=== PATIENT | male | born 1940 | race Caucasian/White ===

== ENCOUNTER → 2021-12-28 13:21 | Outpatient (CLI) | payer MEDICARE, SELFPAY ==
--- NOTE | 2021-12-28 | DI.MRI.S_ITS ---
PROCEDURE: MR BRAIN (IAC) WWO CON INDICATIONS: Dizziness and giddiness/RULE OUT MASS TECHNIQUE: Noncontrast sagittal T1 spin echo, axial FLAIR, axial gradient echo, axial diffusion and ADC through the brain. Axial thin-slice 3D CISS, coronal TruFISP, axial T1 spin echo with fat saturation through the internal auditory canals. After the administration of contrast, thin slice axial and coronal T1 spin echo with fat saturation through the internal auditory canals, and axial T1 spin echo with fat saturation through the brain. COMPARISON: None. FINDINGS: Image quality: Excellent. Cerebellopontine angles: No cerebellopontine angle masses. Inner ear structures appear normally formed. No suspicious enhancement in the internal auditory canal or along the course of the 7th cranial nerve. CSF spaces: Ventricles are normal in size and shape. No extra-axial fluid collections. Basal cisterns are patent. Brain: Mild atrophy and white matter chronic ischemic change noted. No intracranial bleeds or mass effects. Pagan-white matter interface is intact. No abnormal intracranial enhancement. Diffusion weighted images demonstrate no acute ischemic insults. Brainstem appears normal. Normal intravascular flow voids are present. Skull and face: Calvarial marrow signal is normal. Orbits appear normal. Sinuses: Sinuses and mastoids are clear. IMPRESSION: 1. Mild atrophy and white matter chronic ischemic change. 2. Normal MRI of the internal auditory canals without evidence of mass lesion Approved by: Keanu Phelps M.D. on 12/28/2021 at 17:16
== END ==
PROVIDERS: PCP Psychiatry & Neurology Neurology; Referring Provider Psychiatry & Neurology Neurology; Visit Provider Psychiatry & Neurology Neurology
DX: R42 Dizziness and giddiness (principal)
CPT/HCPCS: 70553; A9579

== ENCOUNTER 2022-08-23 09:00 | Outpatient (RCR) | payer MEDICARE, SELFPAY ==
--- NOTE | 2022-07-12 15:58 | PT.OIE ---
Current Diagnoses Sensorineural hearing loss, bilateral (07/12/22) Tinnitus, bilateral (07/12/22) Other abnormalities of gait and mobility (07/12/22) Dizziness and giddiness (07/12/22) Visit Care Team Role Provider Type Derrick Cristobal Family Provider Non-Staff Primary Care Provider Specialty: Family Practice Address: [address] , [place], [address] Email: Kulwant Frost MD Attending Provider Physician Referring Provider Specialty: Ear, Nose, Throat Address: [address] [place] [address], [id number] Email: [email or web address] Physical Therapy Initial Evaluation PT-OP-A Visit Information Start: 07/12/22 11:20 Freq: Status: Active Protocol: Document 07/12/22 11:23 AMB (Rec: 07/12/22 11:33 AMB [id number]) Out-Patient Physical Therapy Visit Information Visit Information Visit Type Initial Evaluation Visit Start Time 11:15 Visit Stop Time 12:00 Total Visit Minutes 45 Visit Number 1 PT-OP-B Current Condition Start: 07/12/22 11:20 Freq: Status: Active Protocol: Document 07/12/22 11:23 AMB (Rec: 07/12/22 11:33 AMB [id number]) Current Condition History of Current Condition Onset Date Chronic Current Complaints Dizziness History of Current Condition Waving sx when up and moving. Denies falls. Has had previous vestibular therapy which focused on Bebo and did not help. Did have VNG which showed L sided weakness. Describes 0/10 dizziness when at rest, 3-4/10 when walking and turning. Treatment Goals Patient/Caregiver Goals Reduce dizziness Personal Factors Other Personal Factors That May Effect TKA wiht multiple MUAs Therapy/Recovery PT-OP-C Subjective Start: 07/12/22 11:20 Freq: Status: Active Protocol: Document 07/12/22 11:15 AMB (Rec: 07/12/22 13:01 AMB [id number]) Patient Questionnaires Dizziness Handicap Inventory DHI Score 36 DHI Functional Impairment 20 to 39% Impaired (Score 20- 39) PT-OP-E Functional Tests Start: 07/12/22 11:20 Freq: Status: Active Protocol: Document 07/12/22 11:15 AMB (Rec: 07/19/22 11:17 AMB [id number]) Functional Tests Dynamic Gait Index (DGI) Score 18 DGI Impairment Rating 20 to <40% Impaired (Score 15- 19) PT-OP-O Vestibular Start: 07/12/22 11:20 Freq: Status: Active Protocol: Document 07/12/22 11:15 AMB (Rec: 07/19/22 11:17 AMB [id number]) Vestibular Assessment Visual Testing Smooth Pursuits Horizontal WFL Smooth Pursuits Vertical WFL Saccades Horizontal WFL Saccades Vertical WFL Thrust Head Positive Left DVA (Line Degradation) 5 Vestibulo-Ocular Reflex (VOR1) Positive PT-OP-Q Treatments Start: 07/12/22 11:20 Freq: Status: Active Protocol: Document 07/12/22 11:15 AMB (Rec: 07/19/22 11:17 AMB [id number]) Neuro Re-Education Treatment Vestibular Rehabilitation VOR Retraining Background smooth Other Activities walking with head turns Details horizontal, vertical Reps/Duration 20'x2 PT-OP-T Assessment and Plan Start: 07/12/22 11:20 Freq: Status: Active Protocol: Document 07/12/22 11:15 AMB (Rec: 07/19/22 15:57 AMB [id number]) Physical Therapy Assessment Evaluation Complexity Number of Personal Factors/Comorbidities 1-2 Number of Body Systems Impaired 1-2 Clinical Presentation at Evaluation Stable Impairments Impairments Functional Activities, Vestibular Goals Two Impairment gait Short Term Goal (STG) Syd will ambulate with horizontal head turns without veering. STG Duration 6 weeks Final Assembler Boat Goal (LTG) Syd will turn quickly without a feeling of waving LTG Duration 12 weeks One Impairment Vestibular function Short Term Goal (STG) Syd will discribe dizziness as 2/10 or less with movement . Final Assembler Boat Goal (LTG) Syd will be independent and consistent with a HEP to improve his peripheral and central vestibular function. LTG Duration 12 weeks Assessment Summary Assessment Syd attends physical therapy with longstanding wavy sx when up and moving about. Specifically denies spinning or sx in general with rolling or positional changes . Did show signs of L sided vestibular hypofunction and 5 line difference with DVA. Symptoms with walking with head turns, pivot turn with DGI. Educated in role of vestibular therapy for chronic sx. Pt does live in [facility] so needs to take ferry to come to medical appts and will be traveling out of state mid/late August. Will focus on exercises to help him manage his sx that he can progress at home due to distance from clinic and travel schedule. Physical Therapy Plan Frequency and Duration Frequency of Treatment 2x/Week Duration of treatment (weeks) 12 Plan of Care Start Date 07/12/22 Plan of Care End Date 10/04/22 Therapeutic Interventions Therapeutic Interventions Balance Training,Home Exercise Program,Manual Therapy, Neuromuscular Re-education, Therapeutic Activities, Therapeutic Exercises, Vestibular Rehabilitation Next Visit Focus/Plan Next Note Type Treatment Note Next Visit Plan review VOR exercises
--- NOTE | 2022-07-12 15:59 | PT.OPPOC ---
Physical, Occupational & Speech Therapy At [facility] Current Diagnoses Sensorineural hearing loss, bilateral (07/12/22) Tinnitus, bilateral (07/12/22) Other abnormalities of gait and mobility (07/12/22) Dizziness and giddiness (07/12/22) Visit Care Team Role Provider Type Derrick Cristobal Family Provider Non-Staff Primary Care Provider Specialty: Family Practice Address: [address] [facility], [place], [address] Email: Kulwant Frost MD Attending Provider Physician Referring Provider Specialty: Ear, Nose, Throat Address: [address] [place] [address], [address] Email: [email or web address] Plan Of Care PT-OP-T Assessment and Plan Start: 07/12/22 11:20 Freq: Status: Active Protocol: Document 07/12/22 11:15 AMB (Rec: 07/19/22 15:57 AMB [id number]) Physical Therapy Assessment Evaluation Complexity Number of Personal Factors/Comorbidities 1-2 Number of Body Systems Impaired 1-2 Clinical Presentation at Evaluation Stable Impairments Impairments Functional Activities, Vestibular Goals Two Impairment gait Short Term Goal (STG) Syd will ambulate with horizontal head turns without veering. STG Duration 6 weeks [facility] Goal (LTG) Syd will turn quickly without a feeling of waving LTG Duration 12 weeks One Impairment Vestibular function Short Term Goal (STG) Syd will discribe dizziness as 2/10 or less with movement . [facility] Goal (LTG) Syd will be independent and consistent with a HEP to improve his peripheral and central vestibular function. LTG Duration 12 weeks Assessment Summary Assessment Syd attends physical therapy with longstanding wavy sx when up and moving about. Specifically denies spinning or sx in general with rolling or positional changes . Did show signs of L sided vestibular hypofunction and 5 line difference with DVA. Symptoms with walking with head turns, pivot turn with DGI. Educated in role of vestibular therapy for chronic sx. Pt does live in [facility] so needs to take ferry to come to medical appts and will be traveling out of state mid/late August. Will focus on exercises to help him manage his sx that he can progress at home due to distance from clinic and travel schedule. Physical Therapy Plan Frequency and Duration Frequency of Treatment 2x/Week Duration of treatment (weeks) 12 Plan of Care Start Date 07/12/22 Plan of Care End Date 10/04/22 Therapeutic Interventions Therapeutic Interventions Balance Training,Home Exercise Program,Manual Therapy, Neuromuscular Re-education, Therapeutic Activities, Therapeutic Exercises, Vestibular Rehabilitation Next Visit Focus/Plan Next Note Type Treatment Note Next Visit Plan review VOR exercises Plan of Care Dates Plan of Care Start Date 07/12/22 Plan of Care End Date 10/04/22 Electronically Signed by: Sandy Owusu, PT 07/19/22 6939 If you are in agreement with this Plan of Care, please return a signed and dated copy. I have reviewed this Plan of Care and certify that the skilled therapy services above are required to meet the patient?s needs. Physician Signature Date Printed Name and Credentials Clinical Instructor Signature Printed Name and Credentials
--- NOTE | 2022-07-22 13:21 | PT.OTN ---
Current Diagnoses Sensorineural hearing loss, bilateral (07/22/22) Tinnitus, bilateral (07/22/22) Other abnormalities of gait and mobility (07/22/22) Dizziness and giddiness (07/22/22) Physical Therapy Treatment Note PT-OP-A Visit Information Start: 07/12/22 11:20 Freq: Status: Active Protocol: Document 07/22/22 10:33 AMB (Rec: 07/22/22 11:05 AMB [id number]) Out-Patient Physical Therapy Visit Information Visit Information Visit Type Treatment Note Visit Start Time 10:30 Visit Stop Time 11:15 Total Visit Minutes 45 Visit Number 2 PT-OP-B Current Condition Start: 07/12/22 11:20 Freq: Status: Active Protocol: Document 07/12/22 11:23 AMB (Rec: 07/12/22 11:33 AMB [id number]) Current Condition History of Current Condition Onset Date Chronic Current Complaints Dizziness History of Current Condition Waving sx when up and moving. Denies falls. Has had previous vestibular therapy which focused on Bebo and did not help. Did have VNG which showed L sided weakness. Describes 0/10 dizziness when at rest, 3-4/10 when walking and turning. Treatment Goals Patient/Caregiver Goals Reduce dizziness Personal Factors Other Personal Factors That May Effect TKA wiht multiple MUAs Therapy/Recovery PT-OP-C Subjective Start: 07/12/22 11:20 Freq: Status: Active Protocol: Document 07/22/22 10:33 AMB (Rec: 07/22/22 11:05 AMB [id number]) OP-PT Subjective Patient Comments Patient Comments When walking feels like it's a little better with the vision . PT-OP-E Functional Tests Start: 07/12/22 11:20 Freq: Status: Active Protocol: Document 07/12/22 11:15 AMB (Rec: 07/19/22 11:17 AMB [id number]) Functional Tests Dynamic Gait Index (DGI) Score 18 DGI Impairment Rating 20 to <40% Impaired (Score 15- 19) PT-OP-O Vestibular Start: 07/12/22 11:20 Freq: Status: Active Protocol: Document 07/12/22 11:15 AMB (Rec: 07/19/22 11:17 AMB [id number]) Vestibular Assessment Visual Testing Smooth Pursuits Horizontal WFL Smooth Pursuits Vertical WFL Saccades Horizontal WFL Saccades Vertical WFL Thrust Head Positive Left DVA (Line Degradation) 5 Vestibulo-Ocular Reflex (VOR1) Positive PT-OP-Q Treatments Start: 07/12/22 11:20 Freq: Status: Active Protocol: Document 07/22/22 10:30 AMB (Rec: 07/23/22 13:20 AMB [id number]) Gym Equipment Shuttle Balance BLUE Comments NBOS HT EO RED Comments challenging Neuro Re-Education Treatment Vestibular Rehabilitation VOR Retraining Background varied (picture) Comments with ambulation Other Activities 3 steps and bow Comments 1 minute with slow head turn right and left walking with head turns Details horizontal, vertical, added diagonal Reps/Duration 20'x2 PT-OP-T Assessment and Plan Start: 07/12/22 11:20 Freq: Status: Active Protocol: Document 07/22/22 10:33 AMB (Rec: 07/22/22 11:05 AMB [id number]) Physical Therapy Assessment Goals Two Impairment gait Short Term Goal (STG) Syd will ambulate with horizontal head turns without veering. STG Duration 6 weeks Custodial Goal (LTG) Syd will turn quickly without a feeling of waving LTG Duration 12 weeks One Impairment Vestibular function Short Term Goal (STG) Syd will discribe dizziness as 2/10 or less with movement . Satellite Tv Technician Installer Goal (LTG) Syd will be independent and consistent with a HEP to improve his peripheral and central vestibular function. LTG Duration 12 weeks Assessment Summary Assessment Syd tolerated the increased challenge of his HEP well. Diagonal head turns were challenging. Is progressing well, but does take a long ferry to PT and then will be out of town, so visits are limited. Physical Therapy Plan Frequency and Duration Frequency of Treatment 2x/Week Duration of treatment (weeks) 12 Plan of Care Start Date 07/12/22 Plan of Care End Date 10/04/22 Therapeutic Interventions Therapeutic Interventions Balance Training,Home Exercise Program,Manual Therapy, Neuromuscular Re-education, Therapeutic Activities, Therapeutic Exercises, Vestibular Rehabilitation
--- NOTE | 2022-08-10 11:01 | PT.OTN ---
Current Diagnoses Sensorineural hearing loss, bilateral (08/10/22) Tinnitus, bilateral (08/10/22) Other abnormalities of gait and mobility (08/10/22) Dizziness and giddiness (08/10/22) Physical Therapy Treatment Note PT-OP-A Visit Information Start: 07/12/22 11:20 Freq: Status: Active Protocol: Document 08/10/22 09:47 AMB (Rec: 08/10/22 11:00 AMB [id number]) Out-Patient Physical Therapy Visit Information Visit Information Visit Type Treatment Note Visit Start Time 09:45 Visit Stop Time 10:30 Total Visit Minutes 45 Visit Number 3 PT-OP-B Current Condition Start: 07/12/22 11:20 Freq: Status: Active Protocol: Document 07/12/22 11:23 AMB (Rec: 07/12/22 11:33 AMB [id number]) Current Condition History of Current Condition Onset Date Chronic Current Complaints Dizziness History of Current Condition Waving sx when up and moving. Denies falls. Has had previous vestibular therapy which focused on Bebo and did not help. Did have VNG which showed L sided weakness. Describes 0/10 dizziness when at rest, 3-4/10 when walking and turning. 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 Hasn't noticed a huge change with exercises yet. PT-OP-E Functional Tests Start: 07/12/22 11:20 Freq: Status: Active Protocol: Document 07/12/22 11:15 AMB (Rec: 07/19/22 11:17 AMB [id number]) Functional Tests Dynamic Gait Index (DGI) Score 18 DGI Impairment Rating 20 to <40% Impaired (Score 15- 19) PT-OP-O Vestibular Start: 07/12/22 11:20 Freq: Status: Active Protocol: Document 07/12/22 11:15 AMB (Rec: 07/19/22 11:17 AMB [id number]) Vestibular Assessment Visual Testing Smooth Pursuits Horizontal WFL Smooth Pursuits Vertical WFL Saccades Horizontal WFL Saccades Vertical WFL Thrust Head Positive Left DVA (Line Degradation) 5 Vestibulo-Ocular Reflex (VOR1) Positive PT-OP-Q Treatments Start: 07/12/22 11:20 Freq: Status: Active Protocol: Document 08/10/22 09:47 AMB (Rec: 08/10/22 11:00 AMB [id number]) Gym Equipment Shuttle Balance BLUE Details 10 min Comments NBOS HT EO a/p and m/l Neuro Re-Education Treatment Vestibular Rehabilitation X2 Viewing Comments 30x2 VOR Retraining Speed 80 bpm Comments 1 min x 5 NBOS Other Activities 3 steps and bow Comments 1 minute with slow head turn right and left walking with head turns Details horizontal, vertical, added diagonal Reps/Duration 20'x2 PT-OP-T Assessment and Plan Start: 07/12/22 11:20 Freq: Status: Active Protocol: Document 08/10/22 09:47 AMB (Rec: 08/10/22 11:00 AMB [id number]) Physical Therapy Assessment Goals Two Impairment gait Short Term Goal (STG) Syd will ambulate with horizontal head turns without veering. STG Duration 6 weeks Client Service Consultant Goal (LTG) Syd will turn quickly without a feeling of waving LTG Duration 12 weeks One Impairment Vestibular function Short Term Goal (STG) Syd will discribe dizziness as 2/10 or less with movement . Penitentiary Goal (LTG) Syd will be independent and consistent with a HEP to improve his peripheral and central vestibular function. LTG Duration 12 weeks Assessment Summary Assessment Syd tolderated increasing speed of VOR well. Encouraged to continue to give it time to progress. Physical Therapy Plan Frequency and Duration Frequency of Treatment 2x/Week Duration of treatment (weeks) 12 Plan of Care Start Date 07/12/22 Plan of Care End Date 10/04/22 Therapeutic Interventions Therapeutic Interventions Balance Training,Home Exercise Program,Manual Therapy, Neuromuscular Re-education, Therapeutic Activities, Therapeutic Exercises, Vestibular Rehabilitation Next Visit Focus/Plan Next Note Type Treatment Note Next Visit Plan review VOR exercises
--- NOTE | 2022-08-23 09:56 | PT.OTN ---
Current Diagnoses Sensorineural hearing loss, bilateral (08/23/22) Tinnitus, bilateral (08/23/22) Other abnormalities of gait and mobility (08/23/22) Dizziness and giddiness (08/23/22) Physical Therapy Treatment Note PT-OP-A Visit Information Start: 07/12/22 11:20 Freq: Status: Active Protocol: Document 08/23/22 09:01 AMB (Rec: 08/23/22 09:56 AMB [id number]) Out-Patient Physical Therapy Visit Information Visit Information Visit Type Treatment Note Visit Start Time 09:00 Visit Stop Time 09:45 Total Visit Minutes 45 Visit Number 4 PT-OP-B Current Condition Start: 07/12/22 11:20 Freq: Status: Active Protocol: Document 07/12/22 11:23 AMB (Rec: 07/12/22 11:33 AMB [id number]) Current Condition History of Current Condition Onset Date Chronic Current Complaints Dizziness History of Current Condition Waving sx when up and moving. Denies falls. Has had previous vestibular therapy which focused on Bebo and did not help. Did have VNG which showed L sided weakness. Describes 0/10 dizziness when at rest, 3-4/10 when walking and turning. Treatment Goals Patient/Caregiver Goals Reduce dizziness Personal Factors Other Personal Factors That May Effect TKA wiht multiple MUAs Therapy/Recovery PT-OP-C Subjective Start: 07/12/22 11:20 Freq: Status: Active Protocol: Document 08/23/22 09:01 AMB (Rec: 08/23/22 09:56 AMB [id number]) OP-PT Subjective Patient Comments Patient Comments Pt continues to feel less steadiness, reports 5/10 unsteadiness with walking whether or not he is doing his head turn exercises. PT-OP-E Functional Tests Start: 07/12/22 11:20 Freq: Status: Active Protocol: Document 07/12/22 11:15 AMB (Rec: 07/19/22 11:17 AMB [id number]) Functional Tests Dynamic Gait Index (DGI) Score 18 DGI Impairment Rating 20 to <40% Impaired (Score 15- 19) PT-OP-O Vestibular Start: 07/12/22 11:20 Freq: Status: Active Protocol: Document 07/12/22 11:15 AMB (Rec: 07/19/22 11:17 AMB [id number]) Vestibular Assessment Visual Testing Smooth Pursuits Horizontal WFL Smooth Pursuits Vertical WFL Saccades Horizontal WFL Saccades Vertical WFL Thrust Head Positive Left DVA (Line Degradation) 5 Vestibulo-Ocular Reflex (VOR1) Positive PT-OP-Q Treatments Start: 07/12/22 11:20 Freq: Status: Active Protocol: Document 08/23/22 09:01 AMB (Rec: 08/23/22 09:56 AMB [id number]) Neuro Re-Education Treatment Vestibular Rehabilitation X2 Viewing Comments 30x2 VOR Retraining Speed 80 bpm Comments 1 min x 5 NBOS Other Activities foam Comments NBOS EO HT; NBOS EC HEP bosu ball Details challenging with eyes open Comments pt needed UE support to prevent LOB PT-OP-T Assessment and Plan Start: 07/12/22 11:20 Freq: Status: Active Protocol: Document 08/23/22 09:01 AMB (Rec: 08/23/22 09:56 AMB [id number]) Physical Therapy Assessment Goals Two Impairment gait Short Term Goal (STG) Syd will ambulate with horizontal head turns without veering. STG Duration 6 weeks Welder Pipe Making Goal (LTG) Syd will turn quickly without a feeling of waving LTG Duration 12 weeks One Impairment Vestibular function Short Term Goal (STG) Syd will discribe dizziness as 2/10 or less with movement . Long-Term Goal (LTG) Syd will be independent and consistent with a HEP to improve his peripheral and central vestibular function. LTG Duration 12 weeks Assessment Summary Assessment A lot of time spent discussing pt's prior treatment and discussed blood pressure meds, hydration, foot sensation, LE strength as a whole part of his overall sx. Pt was challenged by bosu ball balance, does have a bosu ball at home, but encouraged in foam balance for right now as bosu was a bit too challenging . Physical Therapy Plan Frequency and Duration Frequency of Treatment 2x/Week Duration of treatment (weeks) 12 Plan of Care Start Date 07/12/22 Plan of Care End Date 10/04/22 Therapeutic Interventions Therapeutic Interventions Balance Training,Home Exercise Program,Manual Therapy, Neuromuscular Re-education, Therapeutic Activities, Therapeutic Exercises, Vestibular Rehabilitation
--- NOTE | 2022-10-09 10:39 | PT.OPDS ---
Current Diagnoses Sensorineural hearing loss, bilateral (08/23/22) Tinnitus, bilateral (08/23/22) Other abnormalities of gait and mobility (08/23/22) Dizziness and giddiness (08/23/22) Visit Care Team Role Provider Type Derrick Cristobal Family Provider Non-Staff Primary Care Provider Specialty: Family Practice Address: [address], [place], [address] Email: Kulwant Frost MD Attending Provider Physician Referring Provider Specialty: Ear, Nose, Throat Address: [address] [place] [address], [id number] Email: [email or web address] Visit Number Visit Number 4 Discharge Summary PT-OP-B Current Condition Start: 07/12/22 11:20 Freq: Status: Active Protocol: Document 07/12/22 11:23 AMB (Rec: 07/12/22 11:33 AMB [id number]) Current Condition History of Current Condition Onset Date Chronic Current Complaints Dizziness History of Current Condition Waving sx when up and moving. Denies falls. Has had previous vestibular therapy which focused on [place]o and did not help. Did have VNG which showed L sided weakness. Describes 0/10 dizziness when at rest, 3-4/10 when walking and turning. Treatment Goals Patient/Caregiver Goals Reduce dizziness Personal Factors Other Personal Factors That May Effect TKA wiht multiple MUAs Therapy/Recovery PT-OP-C Subjective Start: 07/12/22 11:20 Freq: Status: Active Protocol: Document 08/23/22 09:01 AMB (Rec: 08/23/22 09:56 AMB [id number]) OP-PT Subjective Patient Comments Patient Comments Pt continues to feel less steadiness, reports 5/10 unsteadiness with walking whether or not he is doing his head turn exercises. PT-OP-E Functional Tests Start: 07/12/22 11:20 Freq: Status: Active Protocol: Document 07/12/22 11:15 AMB (Rec: 07/19/22 11:17 AMB [id number]) Functional Tests Dynamic Gait Index (DGI) Score 18 DGI Impairment Rating 20 to <40% Impaired (Score 15- 19) PT-OP-O Vestibular Start: 07/12/22 11:20 Freq: Status: Active Protocol: Document 07/12/22 11:15 AMB (Rec: 07/19/22 11:17 AMB [id number]) Vestibular Assessment Visual Testing Smooth Pursuits Horizontal WFL Smooth Pursuits Vertical WFL Saccades Horizontal WFL Saccades Vertical WFL Thrust Head Positive Left DVA (Line Degradation) 5 Vestibulo-Ocular Reflex (VOR1) Positive PT-OP-T Assessment and Plan Start: 07/12/22 11:20 Freq: Status: Active Protocol: Document 10/09/22 10:38 AMB (Rec: 10/09/22 10:39 AMB [id number]) Physical Therapy Assessment Goals Two Impairment gait Short Term Goal (STG) Syd will ambulate with horizontal head turns without veering. STG Duration 6 weeks Halfway Goal (LTG) Syd will turn quickly without a feeling of waving LTG Duration 12 weeks One Impairment Vestibular function Short Term Goal (STG) Syd will discribe dizziness as 2/10 or less with movement . Software Test Technician Goal (LTG) Syd will be independent and consistent with a HEP to improve his peripheral and central vestibular function. LTG Duration 12 weeks Assessment Summary Assessment Pt had canceled his last scheduled appointment and has not followed up to schedule more. he would need a new referral to return. Overall symptoms did not necessarily improve with PT. sx continue to wax and wane. Physical Therapy Plan Discharge Physical Therapy Discharge Reasons No Longer Attending PT
== END 2022-10-10 11:16 | disposition home or self-care (01) ==
LOC: PHYS 09:00
PROVIDERS: Absent Provider Student in an Organized Health Care Education/Training Program; Family Provider Student in an Organized Health Care Education/Training Program; PCP Student in an Organized Health Care Education/Training Program; Referring Provider Otolaryngology; Visit Provider Otolaryngology
DX: R26.89 Other abnormalities of gait and mobility (principal); H90.3 Sensorineural hearing loss, bilateral; H93.13 Tinnitus, bilateral; R42 Dizziness and giddiness
CPT/HCPCS: 97112; 97161

== ENCOUNTER → 2024-04-18 14:51 | Outpatient (RCR) | payer MEDICARE, SELFPAY ==
--- NOTE | 2023-03-30 14:43 | PT.OIE ---
Current Diagnoses Other disorders of vestibular function, left ear (03/30/23) Sensorineural hearing loss, bilateral (03/30/23) Other abnormalities of gait and mobility (03/30/23) Visit Care Team Role Provider Type Derrick Cristobal Family Provider Non-Staff Primary Care Provider Specialty: Family Practice Address: [address] , [place], [address] Email: Kulwant Frost MD Attending Provider Physician Referring Provider Specialty: Ear, Nose, Throat Address: [address] [place] [address], [id number] Email: [email or web address] Physical Therapy Initial Evaluation PT-OP-A Visit Information Start: 03/30/23 13:59 Freq: Status: Active Protocol: Document 03/30/23 12:45 DCW (Rec: 03/30/23 14:13 DCW [id number]) Out-Patient Physical Therapy Visit Information Visit Information Visit Type Initial Evaluation Visit Start Time 12:45 Visit Stop Time 13:30 Total Visit Minutes 45 Visit Number 1 Number of PULMONARY PHYSICAL THERAPIST Visits 0 Evaluation Information Evaluation Date 03/30/23 PT-OP-B Current Condition Start: 03/30/23 13:59 Freq: Status: Active Protocol: Document 03/30/23 12:45 DCW (Rec: 03/30/23 14:13 DCW [id number]) Current Condition History of Current Condition Onset Date ~13 year history Current Complaints Instability/floating sensation with head turns History of Current Condition Pt is an 83 year old male presenting with a ~13 year history of unsteadiness with head movement while walking. Pt has undergone multiple MRIs , met with ENTs, and has already previously done vestibular rehab, with no answers so far, and feels like worsening symptoms. VNG from two months ago shows 57.1% left unilateral caloric weakness, however also shows incomplete compensation. Pt understandably frustrated with lack of answers and not being able to improve with treatment so far. Notes symptoms never feel like rotational vertigo, more of an imbalance/instability. Prior Treatments and Tests Prior vestibular rehab VNG shows 57.1% left unilateral caloric weakness, 36.34% right directional preponderance MRI IAC (Brain): IMPRESSION: 1. Mild atrophy and white matter chronic ischemic change . 2. Normal MRI of the internal auditory canals without evidence of mass lesion. per Hernan Reyna on 12/28/2021 Treatment Goals Patient/Caregiver Goals Eliminate Vertigo PT-OP-C Subjective Start: 03/30/23 13:59 Freq: Status: Active Protocol: Document 03/30/23 12:45 DCW (Rec: 03/30/23 14:13 DCW [id number]) Patient Questionnaires Dizziness Handicap Inventory DHI Score 24% PT-OP-O Vestibular Start: 03/30/23 13:59 Freq: Status: Active Protocol: Document 03/30/23 12:45 DCW (Rec: 03/30/23 14:13 DCW [id number]) Vestibular Assessment Auditory Tests Stahl Test Within normal limits Rinne Test Negative Air Conduction Results Equal Visual Testing Vasalva Test Negative PT-OP-T Assessment and Plan Start: 03/30/23 13:59 Freq: Status: Active Protocol: Document 03/30/23 12:45 DCW (Rec: 03/30/23 14:42 DCW [id number]) Physical Therapy Assessment Rehab Potential Rehabilitation Potential Poor Evaluation Complexity Number of Personal Factors/Comorbidities 3 or More Number of Body Systems Impaired 4 or More Clinical Presentation at Evaluation Unstable Impairments Impairments Balance,Vestibular Goals One Impairment Pt experiences imbalance when walking with any head movement . Turkey Cleaner Goal (LTG) Pt to report a 50% reduction in symptoms over the course of one entire week LTG Duration 06/28/23 Assessment Summary Assessment Pt presents with a very confusing and complicated history. Pt VNG shows a 57.1% left caloric weakness with continued lack of compensation , which is very unusual 13 year after symptoms began and multiple Vestibular rehab sessions. At this point, testing is clear that pt has a unilateral vestibular loss, however no ideas as to the cause. Pt complaints of rehab not helping and actually feeling like symptoms are slowly increasing fit best with a potential diagnosis of something like an acoustic neuroma, however pt underwent an MRI recently looking specifically for auditory masses, and imaging was entirely unremarkable. Unclear at this time what is causing pt's symptoms and unilateral loss, no diagnosis fits well at this time. Prior vestibular rehabilitation was ineffective, and per, pt, actually may have made him feel worse. Would like for pt to return in the future for further testing if this Therapist is able to come up with other possibilities. Pt does have a difficult trip to the clinic from Monday. Physical Therapy Plan Frequency and Duration Frequency of Treatment Every Other Week Plan of Care Start Date 03/30/23 Plan of Care End Date 06/28/23 Therapeutic Interventions Therapeutic Interventions Balance Training,Coordination Training,Neuromuscular Re- education,Therapeutic Activities,Therapeutic Exercises,Vestibular Rehabilitation Next Visit Focus/Plan Next Note Type Treatment Note Next Visit Plan Further vestibular testing as indicated
--- NOTE | 2023-03-30 14:43 | PT.OPPOC ---
Physical, Occupational & Speech Therapy At [facility] Current Diagnoses Other disorders of vestibular function, left ear (03/30/23) Sensorineural hearing loss, bilateral (03/30/23) Other abnormalities of gait and mobility (03/30/23) Visit Care Team Role Provider Type Derrick Cristobal Family Provider Non-Staff Primary Care Provider Specialty: Family Practice Address: [address] , [place], [address] Email: Kulwant Frost MD Attending Provider Physician Referring Provider Specialty: Ear, Nose, Throat Address: [address] [place] [address], [id number] Email: [email or web address] Plan Of Care PT-OP-T Assessment and Plan Start: 03/30/23 13:59 Freq: Status: Active Protocol: Document 03/30/23 12:45 DCW (Rec: 03/30/23 14:42 DCW [id number]) Physical Therapy Assessment Rehab Potential Rehabilitation Potential Poor Evaluation Complexity Number of Personal Factors/Comorbidities 3 or More Number of Body Systems Impaired 4 or More Clinical Presentation at Evaluation Unstable Impairments Impairments Balance,Vestibular Goals One Impairment Pt experiences imbalance when walking with any head movement . Senior Care Goal (LTG) Pt to report a 50% reduction in symptoms over the course of one entire week LTG Duration 06/28/23 Assessment Summary Assessment Pt presents with a very confusing and complicated history. Pt VNG shows a 57.1% left caloric weakness with continued lack of compensation , which is very unusual 13 year after symptoms began and multiple Vestibular rehab sessions. At this point, testing is clear that pt has a unilateral vestibular loss, however no ideas as to the cause. Pt complaints of rehab not helping and actually feeling like symptoms are slowly increasing fit best with a potential diagnosis of something like an acoustic neuroma, however pt underwent an MRI recently looking specifically for auditory masses, and imaging was entirely unremarkable. Unclear at this time what is causing pt's symptoms and unilateral loss, no diagnosis fits well at this time. Prior vestibular rehabilitation was ineffective, and per, pt, actually may have made him feel worse. Would like for pt to return in the future for further testing if this Therapist is able to come up with other possibilities. Pt does have a difficult trip to the clinic from Monday. Physical Therapy Plan Frequency and Duration Frequency of Treatment Every Other Week Plan of Care Start Date 03/30/23 Plan of Care End Date 06/28/23 Therapeutic Interventions Therapeutic Interventions Balance Training,Coordination Training,Neuromuscular Re- education,Therapeutic Activities,Therapeutic Exercises,Vestibular Rehabilitation Next Visit Focus/Plan Next Note Type Treatment Note Next Visit Plan Further vestibular testing as indicated Plan of Care Dates Plan of Care Start Date 03/30/23 Plan of Care End Date 06/28/23 Electronically Signed by: Marco Kim, PT 03/30/23 9490 If you are in agreement with this Plan of Care, please return a signed and dated copy. I have reviewed this Plan of Care and certify that the skilled therapy services above are required to meet the patient?s needs. Physician Signature Date Printed Name and Credentials Clinical Instructor Signature Printed Name and Credentials
--- NOTE | 2024-04-12 12:31 | PT.OPDS ---
Current Diagnoses Other disorders of vestibular function, left ear (03/30/23) Sensorineural hearing loss, bilateral (03/30/23) Other abnormalities of gait and mobility (03/30/23) Visit Care Team Role Provider Type Derrick Cristobal Family Provider Non-Staff Primary Care Provider Specialty: Family Practice Address: [address] , [place], [address] Email: Kulwant Frost MD Attending Provider Physician Referring Provider Specialty: Ear, Nose, Throat Address: [address] [place] [address], [id number] Email: [email or web address] Visit Number Visit Number 1 Discharge Summary PT-OP-B Current Condition Start: 03/30/23 13:59 Freq: Status: Active Protocol: Document 03/30/23 12:45 DCW (Rec: 03/30/23 14:13 DCW [id number]) Current Condition History of Current Condition Onset Date ~13 year history Current Complaints Instability/floating sensation with head turns History of Current Condition Pt is an 83 year old male presenting with a ~13 year history of unsteadiness with head movement while walking. Pt has undergone multiple MRIs , met with ENTs, and has already previously done vestibular rehab, with no answers so far, and feels like worsening symptoms. VNG from two months ago shows 57.1% left unilateral caloric weakness, however also shows incomplete compensation. Pt understandably frustrated with lack of answers and not being able to improve with treatment so far. Notes symptoms never feel like rotational vertigo, more of an imbalance/instability. Prior Treatments and Tests Prior vestibular rehab VNG shows 57.1% left unilateral caloric weakness, 36.34% right directional preponderance MRI IAC (Brain): IMPRESSION: 1. Mild atrophy and white matter chronic ischemic change . 2. Normal MRI of the internal auditory canals without evidence of mass lesion. per Hernan Reyna on 12/28/2021 Treatment Goals Patient/Caregiver Goals Eliminate Vertigo PT-OP-C Subjective Start: 03/30/23 13:59 Freq: Status: Active Protocol: Document 03/30/23 12:45 DCW (Rec: 03/30/23 14:13 DCW [id number]) Patient Questionnaires Dizziness Handicap Inventory DHI Score 24% PT-OP-O Vestibular Start: 03/30/23 13:59 Freq: Status: Active Protocol: Document 03/30/23 12:45 DCW (Rec: 03/30/23 14:13 DCW [id number]) Vestibular Assessment Auditory Tests Stahl Test Within normal limits Rinne Test Negative Air Conduction Results Equal Visual Testing Vasalva Test Negative PT-OP-T Assessment and Plan Start: 03/30/23 13:59 Freq: Status: Active Protocol: Document 04/12/24 12:30 DCW (Rec: 04/12/24 12:31 DCW [id number]) Physical Therapy Assessment Assessment Summary Assessment Pt has not been seen for multiple months, plan of care has . Pt will be discharged from vestibular rehab at this time
== END | disposition home or self-care (01) ==
LOC: PHYS 03-30 12:20
PROVIDERS: Absent Provider Otolaryngology; Family Provider Student in an Organized Health Care Education/Training Program; PCP Student in an Organized Health Care Education/Training Program; Referring Provider Otolaryngology; Visit Provider Otolaryngology
DX: H81.8X2 Other disorders of vestibular function, left ear (principal); R26.89 Other abnormalities of gait and mobility; H90.3 Sensorineural hearing loss, bilateral
CPT/HCPCS: 97163; 97535